=== PATIENT | male | born 1930 | race Caucasian/White ===

== ENCOUNTER 2019-07-23 10:12 | Inpatient (IN) | payer MEDICARE ==
[~2019-07-23] VITALS: Ht 172.7 cm; Wt 75.2 kg
[2019-07-23 10:49] LABS: BASO % 0 % (0-3); EOS # 0.2 x10^3/uL (0.0-0.7); EOS % 1 % (0-3); HEMATOCRIT 29.6 % (39.0-53.0); HEMOGLOBIN 9.7 g/dL (13.0-17.5); LYMPH # 1.1 x10^3/uL (1.0-4.8); LYMPH % 10 % (24-48); MEAN CORPUSCULAR HEMOGLOBIN 30 pg (25-35); MEAN CORPUSCULAR HGB CONC 33 g/dL (31-37); MEAN CORPUSCULAR VOLUME 92 fL (79-100); MONO # 0.9 x10^3/uL (0.0-1.1); MONO % 8 % (0-9); NEUT # 8.9 x10^3uL (1.8-7.7); NEUT % 81 % (31-73); PLATELET COUNT 125 x10^3/uL (140-400); RED BLOOD COUNT 3.22 x10^6/uL (4.30-5.70); RED CELL DISTRIBUTION WIDTH 14.9 % (11.5-14.5); WHITE BLOOD COUNT 11.1 x10^3/uL (4.0-11.0)
--- NOTE | 2019-07-23 10:58 | PHYS DOC ---
Past History Past Medical History: CAD, CHF, Diabetes, Renal Disease, Other Additional Past Medical Histor: enlarged prostate, ing hernia Past Surgical History: Pacemaker Additional Past Surgical Histo: cardiac valve replacement, cardiac stents Adult General Chief Complaint Chief Complaint: MECHANICAL FALL HPI HPI 89-year-old male presents via EMS for frequent falls at home and HER mental status. Patient has dementia at baseline. He has been acting more last couple days than usual. He has had at least 5 falls in the last 3 days. He lives at home with his daughter who is his machine molder squeeze and DPOA. She tells me that he will seemed fine and then just fall. He does not appear to be losing consciousness, but is also not tripping. He uses a walker at baseline. He has a chronic Stewart for enlarged prostate. Patient has not reported fever. He tells me he does not currently have any pain, but feels very dry in the mouth. His daughter is concerned that she cannot care for him at home in this condition. Review of Systems Review of Systems Constitutional: Falls. Denies fever or chills [] Eyes: Denies change in visual acuity, redness, or eye pain [] HENT: Dry mouth. Denies nasal congestion or sore throat [] Respiratory: Denies cough or shortness of breath [] Cardiovascular: No additional information not addressed in HPI [] GI: Denies abdominal pain, nausea, vomiting, bloody stools or diarrhea [] : chronic stewart [] Musculoskeletal: Denies back pain or joint pain [] Integument: Denies rash or skin lesions [] Neurologic: Denies headache, focal weakness or sensory changes [] Endocrine: Denies polyuria or polydipsia [] All other systems were reviewed and found to be within normal limits, except as documented in this note. Current Medications Current Medications Current Medications Medications (Trade) Dose Ordered Sig/Greg Start Time Stop Time Status Last Admin Dose Admin Sodium Chloride 1,000 ml @ 1,000 mls/hr 1X ONCE 07/23/19 11:00 07/23/19 11:59 Allergies Allergies Allergies Coded Allergies Type Severity Reaction Last Updated Verified Penicillins Allergy Unknown 07/23/19 Yes Physical Exam Physical Exam Constitutional: Well developed, well nourished, no acute distress, non-toxic appearance. Hard of hearing.[] HENT: Normocephalic, atraumatic, bilateral external ears normal, oropharynx very dry, no oral exudates, nose normal. [] Eyes: PERRLA, EOMI, conjunctiva normal, no discharge. [] Neck: Normal range of motion, no tenderness, supple, no stridor. [] Cardiovascular:Heart rate regular rhythm, no murmur [] Lungs & Thorax: Bilateral breath sounds clear to auscultation [] Abdomen: Bowel sounds normal, soft, no tenderness, no masses, no pulsatile masses. Stewart catheter, inguinal hernia [] Skin: Warm, dry, no erythema, no rash. [] Back: No tenderness, no CVA tenderness. [] Extremities: No tenderness, no cyanosis, no clubbing, ROM intact, no edema. [] Neurologic: Alert and oriented X 3, normal motor function, normal sensory function, no focal deficits noted. [] Psychologic: Memory impairment. Affect normal, judgement normal, mood normal. [] Current Patient Data Vital Signs Vital Signs Date Time Temp Pulse Resp B/P (MAP) Pulse Ox O2 Delivery O2 Flow Rate FiO2 07/23/19 10:22 98.2 78 18 92 Room Air EKG EKG [] Radiology/Procedures Radiology/Procedures [] Impressions: EXAM: CT HEAD WITHOUT CONTRAST. HISTORY: Fall, head injury. TECHNIQUE: Computed tomography of the head was performed without intravenous contrast. One or more of the following individualized dose reduction techniques were utilized for this examination: 1. Automated exposure control. 2. Adjustment of the mA and/or kV according to patient size. 3. Use of iterative reconstruction technique. COMPARISON: None. FINDINGS: There is no intracranial hemorrhage. 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 There are also suspected bilaterally in the arben. The hemispheric white matter indicates mild to moderate chronic microangiopathic change. Prominence of the lateral ventricles and hemispheric sulci indicates moderate atrophy. The visualized paranasal sinuses appear clear. The orbits are unremarkable. The temporal bones are unremarkable. The calvarium reveals no suspicious lesions. There are atherosclerotic calcifications of the internal carotid arteries. IMPRESSION: 1. No acute intracranial findings. 2. 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 Mild to moderate chronic microangiopathic white matter change elsewhere. 3. Moderate atrophy. Electronically signed by: Emilie Hess MD (07/23/2019 11:43 AM) [facility] DICTATED AND SIGNED BY: LOGAN HESS MD DATE: 07/23/19 1143 CC: HANDY OVERTON DO; SONALI LEI MD ~ Course & Med Decision Making Course & Med Decision Making Pertinent Labs and Imaging studies reviewed. (See chart for details) His head CT is negative for acute findings. The patient appears very clinically dry. We did give him 1 L normal saline. His creatinine is 2.2. His urinalysis shows urinary tract infection. He is allergic to penicillins, so we'll treat him with level oxacillin IV. I will have the patient into the hospital for further management of his dehydration and urinary tract infection. I spoke with Dr. Triplett and he has accepted the patient for admission. [] Dragon Disclaimer Dragon Disclaimer This electronic medical record was generated, in whole or in part, using a voice recognition dictation system. Departure Departure: Impression: Primary Impression: Dehydration Additional Impressions: Urinary tract infection Dementia Disposition: ADMITTED INPATIENT Admitting Physician: Guanakito Triplett Condition: STABLE Referrals: PCP,NO (PCP) Problem Qualifiers Additional Impressions: Urinary tract infection Urinary tract infection type: acute cystitis Hematuria presence: with hematuria Qualified Codes: N30.01 - Acute cystitis with hematuria Dementia Dementia type: unspecified type Dementia behavioral disturbance: without behavioral disturbance Qualified Codes: F03.90 - Unspecified dementia without behavioral disturbance HANDY OVERTON DO Jul 23, 2019 10:58
[2019-07-23] MEDS ORDERED: IV NORMAL SALINE 1,000ML 1,000 ML IV ONE (11:00)
[2019-07-23 11:15] LABS: ALBUMIN 3.1 g/dL (3.4-5.0); ALBUMIN/GLOBULIN RATIO 0.8 (1.0-1.7); CALCIUM 9.5 mg/dL (8.5-10.1); CREATININE 2.2 mg/dL (0.7-1.3); GFR 28.3; POTASSIUM 4.2 mmol/L (3.5-5.1); TOTAL BILIRUBIN 0.5 mg/dL (0.2-1.0); TOTAL PROTEIN 7.2 g/dL (6.4-8.2)
--- NOTE | 2019-07-23 11:46 | RAD ---
EXAM: CT HEAD WITHOUT CONTRAST. HISTORY: Fall, head injury. TECHNIQUE: Computed tomography of the head was performed without intravenous contrast. One or more of the following individualized dose reduction techniques were utilized for this examination: 1. Automated exposure control. 2. Adjustment of the mA and/or kV according to patient size. 3. Use of iterative reconstruction technique. COMPARISON: None. FINDINGS: There is no intracranial hemorrhage. 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 There are also suspected bilaterally in the arben. The hemispheric white matter indicates mild to moderate chronic microangiopathic change. Prominence of the lateral ventricles and hemispheric sulci indicates moderate atrophy. The visualized paranasal sinuses appear clear. The orbits are unremarkable. The temporal bones are unremarkable. The calvarium reveals no suspicious lesions. There are atherosclerotic calcifications of the internal carotid arteries. IMPRESSION: 1. No acute intracranial findings. 2. 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 Mild to moderate chronic microangiopathic white matter change elsewhere. 3. Moderate atrophy. Electronically signed by: Emilie Hess MD (07/23/2019 11:43 AM) [facility]
[2019-07-23 12:06] LABS: BILIRUBIN,URINE NEG (NEG); CLARITY,URINE CLOUDY; COLOR,URINE YELLOW; GLUCOSE,URINE NEG (NEG)
[2019-07-23 12:07] LABS: BACTERIA,URINE MANY /HPF (0-FEW); NITRITE,URINE NEG (NEG); UROBILINOGEN,URINE 0.2 mg/dL (0.2 mg/dL); WBC,URINE TNTC /HPF (0-4)
[2019-07-23 14:51] VITALS: BP 106/80
--- NOTE | 2019-07-23 15:21 | HP ---
ADMIT DATE: 07/23/2019 HISTORY OF PRESENT ILLNESS: The patient is an 89-year-old male patient who was brought to the Emergency Room with the complaint of recurrent mechanical falls. He lives at home with his daughter who is unable to take care of him. He has been acting more in last couple of days than usual. He has had at least 5 falls in the last 3 days. He lives at home with his daughter who is his auctioneer automobile and DPOA. She stated that he seems to be fine and then he just falls. He does not appear to be losing consciousness, but he is also not tripping. He uses a walker at baseline. He has chronic Mancilla catheter for enlarged prostate. She also reported that the patient has no fever. The patient himself denied any pain, but however, he feels dry in the mouth. His daughter is concerned that she cannot take care of him anymore at home in this condition and was admitted for further evaluation and treatment. The patient seemed to be very demented and determined to stay at home, he refused. He is on hospice. He is in a [place] hospice care and apparently they have been trying to persuade him to move to a fci facility and/or even assisted living, but he has steadfastly refusing that. In fact, he was not even allowing his daughter to get into his room when he was there. 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 PAST SURGICAL HISTORY: Significant for cardiac valve replacement, PCI with stent deployment and pacemaker placement. ALLERGIES: He is allergic to PENICILLIN. MEDICATIONS: He is on lorazepam Intensol as needed for anxiety, hydromorphone for pain. He is on Lasix 40 mg once a day, metoprolol succinate 100 mg once a day and dutasteride 1 capsule once a day. He is also on multivitamins and multiple supplement. FAMILY HISTORY: Probably noncontributory at this age. SOCIAL HISTORY: He is from his , who is . He lives with his daughter in [place] who herself is about 67-year-old and she has health problems that he cannot take care of him. He apparently does not smoke, drink alcohol or use recreational drugs. REVIEW OF SYSTEMS: As per history of present illness. PHYSICAL EXAMINATION: GENERAL: On arrival to the Emergency Room, the patient looked slightly pale. No jaundice, cyanosis or thyromegaly. No jugular venous distention. No limb edema. VITAL SIGNS: His heart rate was 78, blood pressure was 110/60, temperature was 98.2, respiratory rate was 18 and oxygen saturation was 93%. HEAD, EYES, EARS, NOSE AND THROAT: Showed normocephalic, atraumatic. NECK: Supple. HEART: Showed normal first and second heart sounds with no gallop or murmur. CHEST: Clear to auscultation. No crepitation or rhonchi. ABDOMEN: Distended, soft, nontender. No guarding or rigidity. No organomegaly. All hernial orifice intact. Bowel sounds normal. NEUROLOGIC: He is awake, alert, but very confused, agitated at times. All his cranial nerves are intact. EXTREMITIES: He moves all extremities without difficulty. Apparently, he walks with a walker at home, but has had multiple falls. LABORATORY DATA: This morning showed a white cell count of 11,100, hemoglobin 9.7, hematocrit 29, MCV 92, and platelet count of 125,000. His chemistry showed a serum sodium 138, potassium 4.2, chloride 100, bicarbonate 24, anion gap of 14, BUN 51, creatinine 2.2, estimated GFR was 28 mL per minute. His glucose 142, calcium was 9.5. Total bilirubin, AST, ALT, alkaline phosphatase were normal. Total protein was 7.2, albumin was 3.1 g/dL. His prothrombin time, INR and aPTT are all normal. His urine was yellow, cloudy with a pH of 7.5, specific gravity of 1.020. There was large amount of protein, negative for glucose, trace of ketones, large amount of blood, negative for nitrite. There was large amount of leukocyte esterase, 6-10 rbc's, too numerous to count wbc's and too many bacteria. His CT scan of the head showed there is no intracranial hemorrhage. 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 They are also suspected bilaterally in the bones. The hemispheric white matter indicates mild to moderate chronic microangiopathic changes, prominence of the lateral ventricles and hemispheric sulci indicates moderate atrophy. The visualized paranasal sinuses appears clear. The orbits are unremarkable. Temporal bones are unremarkable. The calvarium reveals no suspicious lesion. There are atherosclerotic calcifications of the internal carotid arteries. ASSESSMENT AND PLAN: The patient was admitted with recurrent falls, likely multifactorial. He has multiple cerebellar infarct as he also potentially has acute renal failure, although I do not have anything to compare with. He has also urinary tract infection. Other medical problems include congestive heart failure, combined systolic and diastolic. He is also known to have type 2 diabetes, coronary artery disease, chronic renal disease, benign prostatic hypertrophy. My plan is to gently rehydrate him. He has already an indwelling Mancilla catheter in place and given his impaired kidney function, he probably will require levofloxacin to be given every 48 hours and we will monitor his intake and output and lab work and adjust medication. JAMES ARNETT MD DR: ERICK/kiersten JOB#: [id number] / [id number]
--- NOTE | 2019-07-23 15:23 | NUR ---
NURSING NOTES: PATIENT ADMITTED TO ROOM 109 ON . PATIENT GIVEN INSTRUCTION OF UNIT ROUTINES AND VOICED UNDERSTANDING. ALL PATIENT BELONGINGS DOCUMENTED IN INTERVENTIONS. NO CONCERNS AT THIS TIME.
[2019-07-23] MEDS: IV 1/2 NORMAL SALINE 1,000 ML IV SCH (15:42)
[2019-07-23] MEDS ORDERED: PROC10TA2 PO (16:29)
[2019-07-23] MEDS ORDERED: GLUC-11 PO (16:30)
[2019-07-23] MEDS ORDERED: CHOL200027 PO (16:30)
[2019-07-23] MEDS ORDERED: HALO2TAB PO (16:30)
[2019-07-23] MEDS ORDERED: CHLO25TA4 PO (16:30)
[2019-07-23] MEDS ORDERED: POTA20TA82 PO (16:30)
[2019-07-23] MEDS ORDERED: B CO1TAB10 PO (16:30)
[2019-07-23] MEDS ORDERED: CINN500C2 PO (16:30)
[2019-07-23] MEDS ORDERED: VITA-8 PO (16:30)
[2019-07-23] MEDS ORDERED: CLOP75TA PO (16:30)
[2019-07-23] MEDS ORDERED: ACET325T9 PO (16:30)
[2019-07-23] MEDS ORDERED: DUTA0.5C PO (16:30)
[2019-07-23] MEDS ORDERED: METO-247 PO (16:30)
[2019-07-23] MEDS ORDERED: FERR325T14 PO (16:30)
[2019-07-23] MEDS ORDERED: DOCU100C28 PO (16:30)
[2019-07-23] MEDS ORDERED: SAW450CA7 PO (16:30)
[2019-07-23] MEDS ORDERED: FURO-69 PO ×2 (16:30)
[2019-07-23] MEDS ORDERED: HYOS0.1222 SL (16:30)
[2019-07-23] MEDS ORDERED: LUTE1CAP5 PO (16:30)
[2019-07-23] MEDS ORDERED: HYDR25TA PO (16:30)
[2019-07-23] MEDS ORDERED: ATORVASTATIN CA80 MG PO (16:30)
[2019-07-23] MEDS ORDERED: OMEG1CAP50 PO (16:30)
[2019-07-23] MEDS ORDERED: LORA-254 PO ×2 (16:30)
[2019-07-23] MEDS ORDERED: ASCO500C PO (16:30)
[2019-07-23 19:35] VITALS: BP 107/62
[2019-07-23] MEDS ORDERED: HALOPERIDOL 2 MG/1 ML SL (22:05)
[2019-07-23] MEDS ORDERED: HYOSCYAMINE 0.125 MG TAB.RAPDIS PO PRN (22:45)
[2019-07-23] MEDS ORDERED: DICYCLOMINE HCL 10 MG CAPSULE PO PRN (22:45)
[2019-07-23] MEDS ORDERED: DOCUSATE SODIUM 100 MG CAPSULE PO PRN (22:45)
[2019-07-23] MEDS ORDERED: FUROSEMIDE 20 MG TABLET PO PRN (22:45)
[2019-07-23] MEDS ORDERED: chlorproMAZINE HCL 25 MG TABLET PO PRN (22:45)
[2019-07-23] MEDS ORDERED: hydrOXYzine HCL 25 MG TABLET PO PRN (22:45)
[2019-07-23] MEDS ORDERED: ACETAMINOPHEN 650 MG SUPP.RECT. RC PRN (22:45)
[2019-07-23] MEDS ORDERED: PROCHLORPERAZINE 25 MG SUPP.RECT. PR PRN (22:45)
[2019-07-23] MEDS ORDERED: PROC25SU23 RC (22:53)
[2019-07-23] MEDS ORDERED: DICY10CA3 PO (22:53)
[2019-07-23] MEDS ORDERED: ACET650S11 RC (22:53)
[2019-07-23] MEDS ORDERED: LORA2ORA8 SL (22:53)
[2019-07-23] MEDS ORDERED: POTA10TA5 PO (22:53)
[2019-07-23] MEDS ORDERED: LORA0.5T96 PO (22:53)
[2019-07-23] MEDS: LORazepam 0.5 MG TABLET PO PRN (23:03)
--- NOTE | 2019-07-23 23:15 | NUR ---
PT A/O SELF ONLY, RESTLESS. REPEATEDLY CALLING OUT, REPORTS HE IS SEEING GHOSTS. ATTEMPTING TO GET UP WITHOUT ASSISTANCE. DIFFICULT TO REDIRECT. PRN ATIVAN GIVEN INDICATED. PT UP TO CHAIR WITH STAFF AT SIDE FOR SAFETY.
[2019-07-24] MEDS: HALOPERIDOL 10 MG/5 ML ORAL.CONC. SL PRN ×2 (00:30→09:04)
[2019-07-24 01:01] VITALS: BP 110/61
[2019-07-24] MEDS: IV 1/2 NORMAL SALINE 1,000 ML IV SCH ×3 (02:20→22:55)
[2019-07-24 05:37] VITALS: BP 99/52
[2019-07-24 06:24] LABS: HEMATOCRIT 28.1 % (39.0-53.0); HEMOGLOBIN 9.3 g/dL (13.0-17.5); RED BLOOD COUNT 3.03 x10^6/uL (4.30-5.70); RED CELL DISTRIBUTION WIDTH 15.4 % (11.5-14.5); WHITE BLOOD COUNT 10.5 x10^3/uL (4.0-11.0)
[2019-07-24 06:35] LABS: ALBUMIN 2.7 g/dL (3.4-5.0); ALBUMIN/GLOBULIN RATIO 0.7 (1.0-1.7); CALCIUM 8.7 mg/dL (8.5-10.1); GFR 31.6; POTASSIUM 3.7 mmol/L (3.5-5.1); TOTAL BILIRUBIN 0.6 mg/dL (0.2-1.0); TOTAL PROTEIN 6.4 g/dL (6.4-8.2)
[2019-07-24] MEDS: ASCORBIC ACID 500 MG TABLET PO SCH (08:51)
[2019-07-24] MEDS: DUTASTERIDE 0.5 MG CAPSULE PO SCH (08:51)
[2019-07-24] MEDS: POTASSIUM CHLORIDE 10 MEQ TABLET.ER. PO SCH (08:51)
[2019-07-24] MEDS: FERROUS SULFATE 325 MG TABLET. PO SCH (08:51)
[2019-07-24] MEDS: OMEGA-3 FATTY ACIDS/FISH OIL 1,000 MG CAPSULE. PO SCH (08:51)
[2019-07-24] MEDS: CLOPIDOGREL BISULFATE 75 MG TABLET PO SCH (08:51)
[2019-07-24] MEDS ORDERED: FUROSEMIDE 20 MG TABLET PO SCH (09:00)
[2019-07-24] MEDS: LORazepam 0.5 MG TABLET PO PRN (09:04)
--- NOTE | 2019-07-24 09:10 | NUR ---
NURSING NOTES: PATIENT SPITTING MEDICATIONS BACK AT NURSE THIS AM. PATIENT STATES HE TOOK THIS MEDICATION YESTERDAY AND DOES NOT NEED IT TODAY. PATIENT STATES HE SEES [facility] ON THE [place] AND STATES HE WANTS TO GO TO BED AND TAKE A NAP. WHEN PATIENT WAS TOLD HE WAS ALREADY IN BED AND THAT HE COULD JUST SIT BACK AND RELAX HE STATES HE IS NOT IN BED. PATIENT IS VERY AGITATED AND ANGRY WITH STAFF THIS AM. PRN HALDOL AND ATIVAN GIVEN.
[2019-07-24 11:06] VITALS: BP 103/54
[2019-07-24 15:51] VITALS: BP 114/58
[2019-07-24] MEDS ORDERED: traZODone 50 MG TABLET. PO PRN (19:00)
[2019-07-24 19:47] VITALS: BP 104/57
--- NOTE | 2019-07-24 20:16 | PDOC ---
Exam Note: Heber Note: Please also refer to the separate dictated note~for this date of service dictated separately.~Patient seen individually. Discussed the patient with Nursing staff reviewed the chart.~Reviewed interim history and current functioning. Reviewed vital signs,~Labs/ Radiology~and current medications noted below. Continue current treatment with the changes noted in the dictated addendum note Assessment: Vital Signs/I&O: Vital Signs Date Time Temp Pulse Resp B/P (MAP) Pulse Ox O2 Delivery O2 Flow Rate FiO2 07/24/19 19:47 98.1 83 18 104/57 (73) 91 Room Air I & O 07/23/19 07/23/19 07/24/19 15:00 23:00 07:00 Intake Total 1100 ml 360 ml 1126 ml Output Total 1300 ml Balance 1100 ml 360 ml -174 ml Labs: Laboratory Tests Test 07/23/19 21:11 07/24/19 05:57 07/24/19 07:21 07/24/19 11:36 Glucose (Fingerstick) 144 mg/dL (70-99) H 87 mg/dL (70-99) 101 mg/dL (70-99) H White Blood Count 10.5 x10^3/uL (4.0-11.0) Red Blood Count 3.03 x10^6/uL (4.30-5.70) L Hemoglobin 9.3 g/dL (13.0-17.5) L Hematocrit 28.1 % (39.0-53.0) L Mean Corpuscular Volume 93 fL (79-100) Mean Corpuscular Hemoglobin 31 pg (25-35) Mean Corpuscular Hemoglobin Concent 33 g/dL (31-37) Red Cell Distribution Width 15.4 % (11.5-14.5) H Platelet Count 129 x10^3/uL (140-400) L Sodium Level 137 mmol/L (136-145) Potassium Level 3.7 mmol/L (3.5-5.1) Chloride Level 102 mmol/L (98-107) Carbon Dioxide Level 25 mmol/L (21-32) Anion Gap 10 (6-14) Blood Urea Nitrogen 38 mg/dL (8-26) H Creatinine 2.0 mg/dL (0.7-1.3) H Estimated GFR (Cockcroft-Gault) 31.6 BUN/Creatinine Ratio 19 (6-20) Glucose Level 102 mg/dL (70-99) H Calcium Level 8.7 mg/dL (8.5-10.1) Total Bilirubin 0.6 mg/dL (0.2-1.0) Aspartate Amino Transferase (AST) 14 U/L (15-37) L Alanine Aminotransferase (ALT) 10 U/L (16-63) L Alkaline Phosphatase 67 U/L (46-116) Total Protein 6.4 g/dL (6.4-8.2) Albumin 2.7 g/dL (3.4-5.0) L Albumin/Globulin Ratio 0.7 (1.0-1.7) L Test 07/24/19 16:29 Glucose (Fingerstick) 94 mg/dL (70-99) Current Medications: Meds: Current Medications Medications (Trade) Dose Ordered Sig/Greg Route PRN Reason Start Time Stop Time Status Last Admin Dose Admin Lorazepam (Ativan) 0.5 mg PRN Q6HRS PRN PO ANXIETY / AGITATION 07/23/19 22:30 07/24/19 09:04 Haloperidol Lactate (HALDOL 10mg ORAL CONC) 1 mg PRN Q4HRS PRN SL N/V, DELIRIUM 07/23/19 22:45 07/24/19 09:04 Clopidogrel Bisulfate (Plavix) 75 mg DAILY PO 07/24/19 09:00 07/24/19 08:51 Dutasteride (Avodart) 0.5 mg DAILY PO 07/24/19 09:00 07/24/19 08:51 Ferrous Sulfate (Feosol) 325 mg DAILY PO 07/24/19 09:00 07/24/19 08:51 Furosemide (Lasix) 20 mg DAILY PO 07/24/19 09:00 07/24/19 15:06 DC 07/24/19 08:51 Fish Oil (Fish Oil) 1,000 mg DAILY PO 07/24/19 09:00 07/24/19 08:51 Ascorbic Acid (Vitamin C) 500 mg DAILY PO 07/24/19 09:00 07/24/19 08:51 Potassium Chloride (Klor-Con) 10 meq DAILYWBKFT PO 07/24/19 08:00 07/24/19 08:51 I have reviewed the current psychotropics carefully including drug interactions. Risk benefit ratio favors no change other than as noted in my dictated progress note. Diagnosis: Problems: (1) Dehydration (2) Urinary tract infection (3) Dementia (4) Anxiety disorder (5) Major depressive disorder, recurrent episode ALBERTO LAWSON MD Jul 24, 2019 20:16
[2019-07-24] MEDS: LACTOBACILLUS RHAMNOSUS GG 1 CAPSULE. PO SCH (21:23)
[2019-07-24] MEDS: MIRTAZAPINE 7.5 MG TABLET. PO SCH (21:23)
[2019-07-24] MEDS: ATORVASTATIN CALCIUM 20 MG TABLET PO SCH (21:24)
[2019-07-24 23:42] VITALS: BP 122/61
--- NOTE | 2019-07-25 01:04 | PN ---
DATE: 07/24/2019 SUBJECTIVE: The patient is an 89-year-old male patient who was admitted yesterday with recurrent episodes of fall at home and he has fallen about 5 times in the last 3 days prior to admission. He has chronic indwelling Mancilla catheter due to enlarged prostate. However, his daughter who herself is in her late 60s feels that she is unable to take care of him. However, the patient was vehemently averse to going to a fci. He is on hospice at [facility] and apparently they have tried to persuade him numerous times to go to a halfway facility without any success so far. Anyhow, he was evaluated yesterday, he was found to be dehydrated and therefore, we held his diuretics, started him on IV fluid and continued most of his other medications. On questioning today, he continued to be confused, apparently hallucinating. He was yelling, talking to people who were not there, removing all his clothes. PHYSICAL EXAMINATION: GENERAL: When I examined him today, he was resting slightly propped up in bed, in no apparent respiratory distress. He was slightly pale, but no jaundice, cyanosis or thyromegaly. No jugular venous distention. No limb edema. VITAL SIGNS: Her heart rate was 82, blood pressure was 103/54, temperature was 98.3, respiratory rate 20, and oxygen saturation was 93% on room air. HEAD, EYES, EARS, NOSE AND THROAT: Showed normocephalic, atraumatic. NECK: Supple. HEART: Showed normal first and second heart sounds. No gallop or murmur. CHEST: Clear to auscultation. No crepitation or rhonchi. ABDOMEN: Distended, soft, nontender. There was a large, easily reducible right indirect inguinal hernia. There is no tenderness. No guarding or rigidity. No organomegaly. All hernial orifice intact. Bowel sounds normal. NEUROLOGIC: He is very demented, confused, hallucinating, but without any obvious lateralizing sign. All his cranial nerves are intact. He moves extremities without difficulty. He is mostly bedbound. His intake over the last 24 hours was 2600, output was 1300. LABORATORY DATA: As of this morning, his white cell count was 10,500, hemoglobin 9.3, hematocrit 28, MCV 93, platelet count 229,000. His chemistry showed serum sodium of 137, potassium 3.7, chloride 102, bicarbonate 25, anion gap of 10, BUN 38, creatinine 2, estimated GFR was 31 mL per minute. His glucose 102, calcium was 8.7. Total bilirubin, AST, ALT, alkaline phosphatase were normal. Total protein was 6.74. Albumin was 2.7. His prothrombin time, INR and aPTT were normal. Urinalysis showed the urine was cloudy with a pH of 7.5, specific gravity 1.020, there was large amount of protein, negative for glucose, large amount of blood, large amount of leukocyte esterase, 6-10 rbc's, and too numerous to count wbc's and too many bacteria. ASSESSMENT: 1. In summary, this is an 89-year-old male patient with dementia and behavioral disturbances. Other medical problems include acute on chronic kidney injury, improving. 2. Benign prostatic hypertrophy with bladder outlet obstruction requiring indwelling Mancilla catheter, urinary tract infection for which we started him on IV levofloxacin. HE IS ALLERGIC TO PENICILLIN. Other medical problems include coronary artery disease, PCI with stent deployment, congestive heart failure, likely due to combined systolic and diastolic congestive heart failure, type 2 diabetes, and chronic kidney disease. PLAN: I held his diuretics for now, continue with IV fluid, continue with all his other medications including his dutasteride as well as all his psychotropic medication. We will consult Dr. Bazzi to assist with his management as he is extremely demented, very psychotic at times, hallucinating, yelling for no reason, talking to people who are not there. JAMES ARNETT MD DR: ERICK/kiersten JOB#: [id number] / [id number]
[2019-07-25] MEDS: HALOPERIDOL 10 MG/5 ML ORAL.CONC. SL PRN (01:18)
[2019-07-25 06:17] VITALS: BP 134/73
[2019-07-25 06:18] LABS: CALCIUM 8.9 mg/dL (8.5-10.1); CREATININE 1.6 mg/dL (0.7-1.3); GFR 40.9; POTASSIUM 3.5 mmol/L (3.5-5.1)
[2019-07-25] MEDS: POTASSIUM CHLORIDE 10 MEQ TABLET.ER. PO SCH (08:00)
[2019-07-25] MEDS: DUTASTERIDE 0.5 MG CAPSULE PO SCH (09:00)
[2019-07-25] MEDS: LACTOBACILLUS RHAMNOSUS GG 1 CAPSULE. PO SCH ×2 (09:00→21:00)
[2019-07-25] MEDS: OMEGA-3 FATTY ACIDS/FISH OIL 1,000 MG CAPSULE. PO SCH (09:00)
[2019-07-25] MEDS: FERROUS SULFATE 325 MG TABLET. PO SCH (09:00)
[2019-07-25] MEDS: CLOPIDOGREL BISULFATE 75 MG TABLET PO SCH (09:00)
[2019-07-25] MEDS: ASCORBIC ACID 500 MG TABLET PO SCH (09:00)
[2019-07-25] MEDS: IV 1/2 NORMAL SALINE 1,000 ML IV SCH ×2 (09:03→16:45)
[2019-07-25 10:37] VITALS: BP 132/66
--- NOTE | 2019-07-25 11:25 | NUR ---
NURSING NOTES: THIS NURSE SPOKE TO DAUGHTER, LORI, ABOUT CODE STATUS. DAUGHTER STATES PATIENT IS ON HOSPICE AND HAS A SIGNED DNR FORM AT HOME. DAUGHTER IS ALSO DPOA OF HEALTH AND STATES SHE WISHES TO KEEP PATIENT DNR STATUS.
--- NOTE | 2019-07-25 14:03 | NUR ---
NURSING NOTES: THIS NURSE SPOKE TO DAUGHTERLORI WHOM IS PATIENT'S DPOA. DAUGHTER VOICED THAT SHE DOES NOT WANT US TO PROVIDE FURTHER MEDICAL CARE. SHE WANTS US TO STOP ANTIBIOTICS AND OXYGEN USE. THIS NURSE EXPLAINED THE CONSEQUENCES OF STOPPING CURRENT TREATMENT REGIMEN. DAUGHTER VOICED UNDERSTANDING AND VOICE THAT THIS IS HER WISHES. SHE WANTS THE PATIENT TO GO BACK TO [facility] AND BE ON COMFORT CARE MEASURES ONLY FOR REST OF HOSPITAL STAY. CASE MANAGEMENT NOTIFIED OF SITUATION ALONG WITH [facility]. THIS NURSE WILL SPEAK TO DR. ARNETT OF DAUGHTERS WISHES.
--- NOTE | 2019-07-25 14:52 | NUR ---
NURSING NOTES: AFTER SPEAKING WITH CASE MANAGEMENT AND ASSESSING PATIENT, DR. ARNETT PLANS TO CONTINUE TREATMENT FOR TODAY AND TO PLAN FOR DISCHARGE TOMORROW WITH HOSPICE SERVICES.
[2019-07-25 19:38] VITALS: BP 127/68
--- NOTE | 2019-07-25 20:27 | PDOC ---
Exam Note: Heber Note: Please also refer to the separate dictated note~for this date of service dictated separately.~Patient seen individually. Discussed the patient with Nursing staff reviewed the chart.~Reviewed interim history and current functioning. Reviewed vital signs,~Labs/ Radiology~and current medications noted below. Continue current treatment with the changes noted in the dictated addendum note Assessment: Vital Signs/I&O: Vital Signs Date Time Temp Pulse Resp B/P (MAP) Pulse Ox O2 Delivery O2 Flow Rate FiO2 07/25/19 19:38 98.2 106 18 127/68 (87) 97 Room Air 07/25/19 10:37 2.0 I & O 07/24/19 07/24/19 07/25/19 15:00 23:00 07:00 Intake Total 240 ml 25 ml Output Total 800 ml 1700 ml Balance 240 ml -800 ml -1675 ml Labs: Laboratory Tests Test 07/25/19 05:39 07/25/19 07:55 Sodium Level 142 mmol/L (136-145) Potassium Level 3.5 mmol/L (3.5-5.1) Chloride Level 105 mmol/L (98-107) Carbon Dioxide Level 24 mmol/L (21-32) Anion Gap 13 (6-14) Blood Urea Nitrogen 25 mg/dL (8-26) Creatinine 1.6 mg/dL (0.7-1.3) H Estimated GFR (Cockcroft-Gault) 40.9 Glucose Level 100 mg/dL (70-99) H Calcium Level 8.9 mg/dL (8.5-10.1) Glucose (Fingerstick) 89 mg/dL (70-99) Current Medications: Meds: Current Medications Medications (Trade) Dose Ordered Sig/Greg Route PRN Reason Start Time Stop Time Status Last Admin Dose Admin Levofloxacin/ Dextrose 50 ml @ 50 mls/hr Q24H IV 07/25/19 09:00 07/25/19 08:56 Atorvastatin Calcium (Lipitor) 80 mg HS PO 07/24/19 21:00 07/24/19 21:24 Lactobacillus Rhamnosus (Culturelle) 1 cap BID PO 07/24/19 21:00 07/24/19 21:23 Mirtazapine (Remeron) 7.5 mg QHS PO 07/24/19 21:00 07/24/19 21:23 I have reviewed the current psychotropics carefully including drug interactions. Risk benefit ratio favors no change other than as noted in my dictated progress note. Diagnosis: Problems: (1) Dehydration (2) Urinary tract infection (3) Dementia (4) Anxiety disorder (5) Major depressive disorder, recurrent episode ALBERTO LAWSON MD Jul 25, 2019 20:27
--- NOTE | 2019-07-25 20:28 | PN ---
DATE: 07/25/2019 SUBJECTIVE: The patient continues to be restless, agitated, hollering, yelling. We did start him on IV fluid and his kidney function is improving. In fact, his creatinine came down from 2.2 to 1.6. His urine culture grew more than 100,000 colony forming units per mL of Streptococcus species. PHYSICAL EXAMINATION: GENERAL: When I examined him this afternoon, he was very confused, restless, agitated, slightly pale, but no jaundice, cyanosis or thyromegaly. No jugular venous distention. No limb edema. LABORATORY DATA: His white count was 10.5, hemoglobin 9.3, hematocrit 28, MCV 93, and platelet count of 129,000. His chemistry showed a serum sodium 142, potassium 3.5, chloride 105, bicarbonate 24, anion gap of 13, BUN 25, creatinine 1.6, estimated GFR was 40 mL per minute. His glucose was 100, calcium was 8.9. His urine culture showed growth of more than 100,000 colony forming units per mL of Streptococcus species. Unfortunately, HE IS ALLERGIC TO PENICILLIN. We will continue with IV fluid, continue with IV levofloxacin and all other medication tomorrow. The patient will be hopefully discharged on hospice to perhaps a shelter facility if he was accepted in one of them. JAMES ARNETT MD DR: ERICK/kiersten JOB#: [id number] / [id number]
[2019-07-25] MEDS: ATORVASTATIN CALCIUM 20 MG TABLET PO SCH (21:00)
[2019-07-25] MEDS: MIRTAZAPINE 7.5 MG TABLET. PO SCH (21:00)
[2019-07-25 23:00] VITALS: BP 131/70
--- NOTE | 2019-07-26 00:26 | CONS ---
DATE OF CONSULTATION: 07/24/2019 PSYCHIATRIC CONSULTATION This late entry 07/24/2019 covers elements not covered in my initial note. I met with the patient evening of 07/24/2019. Discussed with nursing staff, reviewed the chart. IDENTIFYING DATA: The patient is an 89-year-old male seen in bed [address], [facility], for a psychiatric consult requested by Dr. Triplett on account of the patient's active hallucinations within the context of his UTI. He has been grabbing at things, seeing bugs, slept poorly previous night. Per nursing report, the day before, he was much more oriented. Concern has been that despite treatment of his UTI, confusion seems to be worsening within the context of his baseline dementia. In addition, he seems to be psychotic with active hallucinations. CHIEF COMPLAINT: "I am okay." While I was visiting with the patient, he was looking out of the corner of his eyes, which were trailing all around the room as if he is following some visual cues. HISTORY OF PRESENT ILLNESS: The patient has a history of dementia, Alzheimer's vascular type. He has been residing at home with his daughter who is now unable to take care of him. He has been having recurrent falls. He appears somewhat depressed, paranoid. No active symptoms of bipolar disorder, suicidal or homicidal ideation. He has had sleep and appetite changes. PAST PSYCHIATRIC HISTORY: As above. MEDICAL HISTORY: Positive falls, repeated falls, coronary artery disease, congestive heart failure, type 2 diabetes mellitus, chronic renal disease, BPH, inguinal hernia. PAST SURGICAL HISTORY: Significant for cardiac valve replacement, PCI with stent deployment and pacemaker placement. ALLERGIES: PENICILLIN. CURRENT PSYCHOTROPICS: Ativan and Intensol p.r.n. FAMILY HISTORY: Noncontributory. SOCIAL HISTORY: The patient lives at home with his daughter who is in her 60s and is having trouble taking care of him. MENTAL STATUS EXAMINATION: The patient was seen individually evening of 07/24/2019 in his room. He is oriented to himself. Insight, judgment, recent memory is impaired. Language function intact. Attention span short. Mood and affect somewhat labile. 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 He felt the year was 2018, felt the month was January. 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 RECOMMENDATION: From a psychiatric standpoint, I would treat the UTI and see how his psychotic symptoms seem to resolve with resolution of the UTI. He does not have a history of alcohol abuse or withdrawal. We will start Remeron 7.5 mg p.o. at bedtime, trazodone 50 mg at bedtime p.r.n. insomnia and then see if his psychotic symptoms persist despite resolution of the UTI and then decide whether we need to use an atypical antipsychotic. Dr. Triplett, thank you for the opportunity to participate in the patient's care. We will follow with you. ALBERTO LAWSON MD DR: CHATO/nts JOB#: [id number] / [id number]
[2019-07-26] MEDS: IV 1/2 NORMAL SALINE 1,000 ML IV SCH (02:45)
[2019-07-26 06:08] LABS: CALCIUM 8.5 mg/dL (8.5-10.1); CREATININE 1.4 mg/dL (0.7-1.3); GFR 47.7
[2019-07-26 06:14] VITALS: BP 118/66
[2019-07-26] MEDS: POTASSIUM CHLORIDE 10 MEQ TABLET.ER. PO SCH (08:00)
[2019-07-26] MEDS: FERROUS SULFATE 325 MG TABLET. PO SCH (08:54)
[2019-07-26] MEDS: OMEGA-3 FATTY ACIDS/FISH OIL 1,000 MG CAPSULE. PO SCH (08:54)
[2019-07-26] MEDS: LACTOBACILLUS RHAMNOSUS GG 1 CAPSULE. PO SCH ×2 (08:54→21:00)
[2019-07-26] MEDS: ASCORBIC ACID 500 MG TABLET PO SCH (08:55)
[2019-07-26] MEDS: DUTASTERIDE 0.5 MG CAPSULE PO SCH (08:55)
[2019-07-26] MEDS: CLOPIDOGREL BISULFATE 75 MG TABLET PO SCH (08:55)
[2019-07-26 10:56] VITALS: BP 128/71
[2019-07-26 14:46] VITALS: BP 110/67
--- NOTE | 2019-07-26 15:20 | NUR ---
Patient resting in bed at this time, continue to reposition throughout day. Patient appears comfortable and will ask staff for drinks and when he is hungry. Patient able to tolerate 75% of an ensure and sips of water. Bed bath given today, skin dry and intact. Pt denies complaints of pain or discomfort. Verified with daughter about medications/antibiotics, states she does not want to continue further treatment.
[2019-07-26 19:55] VITALS: BP 107/67
--- NOTE | 2019-07-26 20:27 | PDOC ---
Exam Note: Heber Note: Please also refer to the separate dictated note~for this date of service dictated separately.~Patient seen individually. Discussed the patient with Nursing staff reviewed the chart.~Reviewed interim history and current functioning. Reviewed vital signs,~Labs/ Radiology~and current medications noted below. Continue current treatment with the changes noted in the dictated addendum note Assessment: Vital Signs/I&O: Vital Signs Date Time Temp Pulse Resp B/P (MAP) Pulse Ox O2 Delivery O2 Flow Rate FiO2 07/26/19 19:55 97.4 104 20 107/67 (80) 92 Room Air 07/25/19 10:37 2.0 I & O 07/25/19 07/25/19 07/26/19 14:59 22:59 06:59 Intake Total 0 ml Output Total 1300 ml 775 ml Balance -1300 ml -775 ml Labs: Laboratory Tests Test 07/26/19 05:42 07/26/19 07:54 Sodium Level 143 mmol/L (136-145) Potassium Level 4.0 mmol/L (3.5-5.1) Chloride Level 106 mmol/L (98-107) Carbon Dioxide Level 24 mmol/L (21-32) Anion Gap 13 (6-14) Blood Urea Nitrogen 19 mg/dL (8-26) Creatinine 1.4 mg/dL (0.7-1.3) H Estimated GFR (Cockcroft-Gault) 47.7 Glucose Level 92 mg/dL (70-99) Calcium Level 8.5 mg/dL (8.5-10.1) Glucose (Fingerstick) 77 mg/dL (70-99) Current Medications: I have reviewed the current psychotropics carefully including drug interactions. Risk benefit ratio favors no change other than as noted in my dictated progress note. Diagnosis: Problems: (1) Dehydration (2) Urinary tract infection (3) Dementia (4) Anxiety disorder (5) Major depressive disorder, recurrent episode ALBERTO LAWSON MD Jul 26, 2019 20:27
[2019-07-26] MEDS: MIRTAZAPINE 7.5 MG TABLET. PO SCH (21:00)
[2019-07-26] MEDS: ATORVASTATIN CALCIUM 20 MG TABLET PO SCH (21:00)
--- NOTE | 2019-07-26 21:34 | PN ---
DATE: 07/25/2019 PSYCHIATRIC PROGRESS NOTE. This late entry of 07/25/2019 covers the elements not covered in my initial note. SUBJECTIVE: I met with the patient in the evening. Overall, the patient continues to have some intermittent hallucinations and these are in association with his UTI and a history of dementia. He is somewhat tired. REVIEW OF SYSTEMS: No CV, , pulmonary, eye system symptoms on review. MENTAL STATUS EXAM: Oriented to himself. Insight, judgment, recent memory is impaired. Language function intact. Attention span short. Mood and affect somewhat withdrawn, labile at times. LABORATORY DATA: Reviewed. IMPRESSION: Unchanged from initial note. PLAN: No change from initial note. MAN Shi LAWSON MD DR: CHATO/kiersten JOB#: [id number] / [id number]
[2019-07-26 22:27] VITALS: BP 106/65
--- NOTE | 2019-07-26 23:22 | PN ---
DATE: 07/26/2019 SUBJECTIVE: The patient is resting, slightly propped up in bed, sleeping comfortably. He complained that he is tired. He is definitely less restless and agitated. He is not yelling or hollering like yesterday. PHYSICAL EXAMINATION: GENERAL: When I examined him this morning, he looked somewhat pale, but no jaundice, cyanosis or thyromegaly. No jugular venous distention. No limb edema. VITAL SIGNS: His heart rate was 75, blood pressure was 128/71, temperature was 97.6, respiratory rate was 16, and oxygen saturation was 94%. HEAD, EYES, EARS, NOSE AND THROAT: Showed normocephalic, atraumatic. NECK: Supple. HEART: Showed normal first and second heart sounds. No gallop or murmur. CHEST: Clear to auscultation. No crepitation or rhonchi. ABDOMEN: Distended, soft, no tenderness. No guarding or rigidity. No organomegaly. He has large indirect inguinal hernia that is reducible, extending to the right scrotal area. He has an indwelling Mancilla catheter. NEUROLOGIC: He is demented, but without any obvious lateralizing sign. His intake over the last 24 hours was 265, output was 2500. LABORATORY DATA: As of this morning, his serum sodium was 143, potassium 4, chloride 106, bicarbonate 24, anion gap of 13, BUN 19, creatinine 1.4, estimated GFR was 48 mL per minute. His glucose 92, calcium was 8.5. His white cell count was 10,000, hemoglobin 9.3, hematocrit 28, MCV 93, and platelet count of 129,000. ASSESSMENT: 1. Recurrent falls. 2. Acute on chronic kidney injury. 3. Benign prostatic hypertrophy with bladder outlet obstruction. 4. Urinary tract infection. 5. The patient has multiple other medical problems include: A. Coronary artery disease, status post PCI stent deployment. B. Congestive heart failure, likely due to combined systolic and diastolic congestive heart failure. C. Type 2 diabetes. D. Chronic kidney disease. PLAN: To continue with IV fluid, continue with levofloxacin. Continue with all his psychotropic medications, await placement in a detention facility to go on hospice care. JAMES ARNETT MD DR: ERICK/kiersten JOB#: [id number] / [id number]
[2019-07-27 04:43] VITALS: BP 139/76
[2019-07-27 07:41] LABS: CALCIUM 8.3 mg/dL (8.5-10.1); CREATININE 1.6 mg/dL (0.7-1.3); GFR 40.9
[2019-07-27 07:42] LABS: HEMATOCRIT 30.4 % (39.0-53.0); RED BLOOD COUNT 3.3 x10^6/uL (4.30-5.70); RED CELL DISTRIBUTION WIDTH 15.2 % (11.5-14.5); WHITE BLOOD COUNT 10.6 x10^3/uL (4.0-11.0)
[2019-07-27 08:15] LABS: POTASSIUM 4.1 mmol/L (3.5-5.1)
[2019-07-27] MEDS: LACTOBACILLUS RHAMNOSUS GG 1 CAPSULE. PO SCH ×2 (08:32→21:08)
[2019-07-27] MEDS: FERROUS SULFATE 325 MG TABLET. PO SCH (08:32)
[2019-07-27] MEDS: OMEGA-3 FATTY ACIDS/FISH OIL 1,000 MG CAPSULE. PO SCH (08:32)
[2019-07-27] MEDS: POTASSIUM CHLORIDE 10 MEQ TABLET.ER. PO SCH (08:32)
[2019-07-27] MEDS: DUTASTERIDE 0.5 MG CAPSULE PO SCH (08:32)
[2019-07-27] MEDS: ASCORBIC ACID 500 MG TABLET PO SCH (08:32)
[2019-07-27] MEDS: CLOPIDOGREL BISULFATE 75 MG TABLET PO SCH (08:32)
[2019-07-27 10:48] VITALS: BP 106/65
[2019-07-27] MEDS: CALCIUM CARBONATE 500 MG TAB.CHEW PO PRN (14:05)
[2019-07-27 15:41] VITALS: BP 100/55
[2019-07-27 19:25] VITALS: BP 107/57
--- NOTE | 2019-07-27 20:57 | PDOC ---
Exam Note: Heber Note: Please also refer to the separate dictated note~for this date of service dictated separately.~Patient seen individually. Discussed the patient with Nursing staff reviewed the chart.~Reviewed interim history and current functioning. Reviewed vital signs,~Labs/ Radiology~and current medications noted below. Continue current treatment with the changes noted in the dictated addendum note Assessment: Vital Signs/I&O: Vital Signs Date Time Temp Pulse Resp B/P (MAP) Pulse Ox O2 Delivery O2 Flow Rate FiO2 07/27/19 19:25 98.3 93 16 107/57 (74) 93 Room Air 07/25/19 10:37 2.0 I & O 07/26/19 07/26/19 07/27/19 15:00 23:00 07:00 Intake Total 300 ml 960 ml 300 ml Output Total 300 ml Balance 0 ml 960 ml 300 ml Labs: Laboratory Tests Test 07/26/19 21:14 07/27/19 06:40 07/27/19 08:06 07/27/19 11:56 Glucose (Fingerstick) 183 mg/dL (70-99) H 250 mg/dL (70-99) H 207 mg/dL (70-99) H White Blood Count 10.6 x10^3/uL (4.0-11.0) Red Blood Count 3.30 x10^6/uL (4.30-5.70) L Hemoglobin 10.0 g/dL (13.0-17.5) L Hematocrit 30.4 % (39.0-53.0) L Mean Corpuscular Volume 92 fL (79-100) Mean Corpuscular Hemoglobin 30 pg (25-35) Mean Corpuscular Hemoglobin Concent 33 g/dL (31-37) Red Cell Distribution Width 15.2 % (11.5-14.5) H Platelet Count 209 x10^3/uL (140-400) Sodium Level 140 mmol/L (136-145) Potassium Level 4.1 mmol/L (3.5-5.1) Chloride Level 104 mmol/L (98-107) Carbon Dioxide Level 25 mmol/L (21-32) Anion Gap 11 (6-14) Blood Urea Nitrogen 29 mg/dL (8-26) H Creatinine 1.6 mg/dL (0.7-1.3) H Estimated GFR (Cockcroft-Gault) 40.9 Glucose Level 270 mg/dL (70-99) H Calcium Level 8.3 mg/dL (8.5-10.1) L Test 07/27/19 16:23 Glucose (Fingerstick) 196 mg/dL (70-99) H Current Medications: Meds: Current Medications Medications (Trade) Dose Ordered Sig/Greg Route PRN Reason Start Time Stop Time Status Last Admin Dose Admin Calcium Carbonate/ Glycine (Tums) 500 mg PRN AFTMEALHC PRN PO INDIGESTION 07/27/19 13:15 07/27/19 14:05 I have reviewed the current psychotropics carefully including drug interactions. Risk benefit ratio favors no change other than as noted in my dictated progress note. Diagnosis: Problems: (1) Psychotic disorder (2) Major neurocognitive disorder (3) Dementia in Alzheimer's disease with delusions (4) Dementia in Alzheimer's disease with depression (5) Dementia, vascular, with delusions (6) Dementia, vascular, with depression (7) Anxiety disorder ALBERTO LAWSON MD Jul 27, 2019 20:57
[2019-07-27] MEDS: MIRTAZAPINE 7.5 MG TABLET. PO SCH (21:08)
[2019-07-27] MEDS: ATORVASTATIN CALCIUM 20 MG TABLET PO SCH (21:08)
[2019-07-27 23:08] VITALS: BP 111/63
--- NOTE | 2019-07-27 23:22 | PN ---
DATE: 07/26/2019 PSYCHIATRIC PROGRESS NOTE This late entry 07/26/2019, covers the elements not covered in my initial note. SUBJECTIVE: I met with the patient in the evening of 07/26/2019. Per nursing report, the patient has been more verbal and appropriate, less delirious, less hallucinations. He has been treated for his UTI and cognitively appears a little clearer. REVIEW OF SYSTEMS: Ambulation impaired. No CV, , pulmonary, eye system symptoms on review. MENTAL STATUS EXAM: Oriented to himself and situation. Speech is coherent, very verbal forthcoming as I met with him at some length. Abstraction fair, computation impaired, language function intact. Mood and affect remains intermittently withdrawn. LABORATORY DATA: Reviewed. IMPRESSION: Unchanged from initial note. PLAN: No change from initial note. Treat the UTI. Rest psychotropics unchanged. MAN Shi LAWSON MD DR: CHATO/kiersten JOB#: [id number] / [id number]
[2019-07-28 04:47] VITALS: BP 109/54
[2019-07-28] MEDS: levoFLOXacin 250 MG TABLET PO SCH (04:47)
[2019-07-28] MEDS: CLOPIDOGREL BISULFATE 75 MG TABLET PO SCH (08:49)
[2019-07-28] MEDS: OMEGA-3 FATTY ACIDS/FISH OIL 1,000 MG CAPSULE. PO SCH (08:50)
[2019-07-28] MEDS: POTASSIUM CHLORIDE 10 MEQ TABLET.ER. PO SCH (08:50)
[2019-07-28] MEDS: FERROUS SULFATE 325 MG TABLET. PO SCH (08:50)
[2019-07-28] MEDS: ASCORBIC ACID 500 MG TABLET PO SCH (08:50)
[2019-07-28] MEDS: LACTOBACILLUS RHAMNOSUS GG 1 CAPSULE. PO SCH ×2 (08:50→19:56)
[2019-07-28] MEDS: DUTASTERIDE 0.5 MG CAPSULE PO SCH (08:50)
[2019-07-28 11:00] VITALS: BP 107/61
--- NOTE | 2019-07-28 12:15 | PN ---
DATE: 07/27/2019 SUBJECTIVE: The patient is resting slightly propped up in bed, in no apparent distress. He is complaining of neck pain and also heartburn and said that he is uncomfortable the way he is sitting, but otherwise, he is much less agitated and restless than yesterday. He is not hollering or yelling. PHYSICAL EXAMINATION: GENERAL: When I examined him, he looked pale. Not jaundiced, cyanosed or thyromegaly. No jugular venous distention. No limb edema. VITAL SIGNS: His heart rate was 102, blood pressure is 106/65, temperature was 99.6, respiratory rate was 18 and oxygen saturation was 93% on room air. HEENT: Head is normocephalic, atraumatic. NECK: Supple. CARDIOVASCULAR SYSTEM: Showed normal first and second heart sounds. No gallop or murmur. CHEST: Clear to auscultation. No crepitation or rhonchi. ABDOMEN: Distended, soft, nontender, no guarding or rigidity. No organomegaly. All hernial orifices intact. Bowel sounds normal. NEUROLOGIC: He is demented, but without any obvious lateralizing sign. He moves all extremities without difficulty, but he is mostly bed bound, chair bound. He has an indwelling Mancilla catheter, has large indirect inguinal hernia that is reducible. His intake over the last 24 hours was incompletely recorded, output was 2075. LABORATORY DATA: His white cell count 15,600, hemoglobin 10, hematocrit 30, MCV 92 and platelet count 209,000. His chemistry showed that his serum sodium 140, potassium 4.1, chloride 104, bicarbonate 25, anion gap of 11, BUN 29, creatinine 1.6, estimated GFR was 41 mL per minute. Glucose 170 and calcium was 8.3. His urine culture has grown greater than 100,000 colony forming units per mL of Streptococcus species as well as Enterococcus faecalis. The bacteria is sensitive to all antibiotics including ciprofloxacin, levofloxacin, nitrofurantoin, penicillin, tetracycline, as well as vancomycin. ASSESSMENT: 1. Recurrent falls. 2. Acute on chronic kidney injury. 3. Benign prostatic hypertrophy, bladder outlet obstruction. 4. Urinary tract infection. 5. The patient has multiple other medical problems including: A. Coronary artery disease, status post PCI stent deployment. B. Congestive heart failure, likely combined systolic and diastolic congestive heart failure. C. Type 2 diabetes mellitus. D. Chronic kidney disease. PLAN: To continue with oral Levaquin and continue the other medications and I will add also Protonix and hopefully once he is accepted at [facility], can be discharged there on Monday. JAMES ARNETT MD DR: ERICK/kiersten JOB#: [id number] / [id number]
--- NOTE | 2019-07-28 12:36 | PN ---
DATE: 07/28/2019 SUBJECTIVE: The patient is resting, slightly propped up in bed, in no apparent respiratory distress. He is awake, alert, very confused, disoriented to time, place and person. He ate about 50% of his breakfast this morning. PHYSICAL EXAMINATION: GENERAL: When I examined him, he looked pale, but no jaundice, cyanosis or thyromegaly. No jugular venous distention. No limb edema. VITAL SIGNS: His heart rate was 106, blood pressure was 109/54, temperature was 98.9, respiratory rate was 18 and oxygen saturation was 93%. HEAD, EYES, EARS, NOSE AND THROAT: Showed normocephalic, atraumatic. NECK: Supple. HEART: Showed normal first and second heart sounds. No gallop or murmur. CHEST: Clear to auscultation. No crepitation or rhonchi. ABDOMEN: Distended, soft, nontender. NEUROLOGIC: He is demented without any obvious lateralizing sign. He has an indwelling catheter and direct inguinal hernia that is easily reducible. His intake over the last 24 hours was 1560, output was 300. LABORATORY DATA: As of yesterday, his white cell count was 10,600, hemoglobin 10, hematocrit 30, MCV 92, and platelet count 209,000. His chemistry showed a serum sodium 140, potassium 4.1, chloride 104, bicarbonate 25, anion gap of 11, BUN 29, creatinine 0.6, estimated GFR was 41 mL per minute, his glucose 217 and calcium was 8.3. ASSESSMENT: 1. Recurrent falls. 2. Acute on chronic kidney injury. 3. Benign prostatic hypertrophy with bladder outlet obstruction requiring indwelling Mancilla catheter. 4. Urinary tract infection with growth of Streptococcus species and Enterococcus faecalis. 5. The patient has multiple other medical problems including: A. Coronary artery disease, status post percutaneous coronary intervention with stent deployment. B. Congestive heart failure, likely combined systolic and diastolic congestive heart failure. C. Type 2 diabetes. D. Acute on chronic kidney disease. PLAN: To continue with oral levofloxacin. Continue with all his psychotropic medication and hopefully discharge him tomorrow to a assisted facility on hospice care. JAMES ARNETT MD DR: ERICK/kiersten JOB#: [id number] / [id number]
[2019-07-28] MEDS ORDERED: HYDROcodone/APAP 10/325 1 TAB TABLET PO PRN (14:00)
[2019-07-28 15:20] VITALS: BP 108/65
--- NOTE | 2019-07-28 16:30 | NUR ---
Pts daughter came out and told another RN, Mylene, that patient was adamant to keep his check book with him. Daughter brought check book in for patient to do some bills. An hour later this RN and IAN Chakraborty went in to get patient on commode. Check book is no where to be found. Looked under bed, under mattress in linens, in trash, in patients gown, in bedside table drawers. No check book found. This RN notified patients daughter, daughter states she will double check everything and look in the envelopes he gave her to make sure she doesn't have it. RN asked her to let us know if she finds it or not. This situation was communicated to nursing intelligence group supervisor. MIAH.
--- NOTE | 2019-07-28 16:39 | NUR ---
Daughter called back and states she does have patients check book.
[2019-07-28] MEDS: ACETAMINOPHEN 325 MG TABLET PO SCH (18:40)
[2019-07-28 19:13] VITALS: BP 106/64
[2019-07-28] MEDS: ATORVASTATIN CALCIUM 20 MG TABLET PO SCH (19:56)
[2019-07-28] MEDS: MIRTAZAPINE 7.5 MG TABLET. PO SCH (19:56)
--- NOTE | 2019-07-28 20:12 | NUR ---
Went over plan of care with pt, patient voiced understanding, needs redirection. Patient had a slight temp when this nurse came on shift. Patient was treated with tylenol. Patient is now afebrile. Will continue to monitor closely.
--- NOTE | 2019-07-28 20:31 | PDOC ---
Exam Note: Heber Note: Please also refer to the separate dictated note~for this date of service dictated separately.~Patient seen individually. Discussed the patient with Nursing staff reviewed the chart.~Reviewed interim history and current functioning. Reviewed vital signs,~Labs/ Radiology~and current medications noted below. Continue current treatment with the changes noted in the dictated addendum note Assessment: Vital Signs/I&O: Vital Signs Date Time Temp Pulse Resp B/P (MAP) Pulse Ox O2 Delivery O2 Flow Rate FiO2 07/28/19 20:04 98.8 07/28/19 19:37 Room Air 07/28/19 19:13 119 18 106/64 (78) 92 07/25/19 10:37 2.0 I & O 07/27/19 07/27/19 07/28/19 15:00 23:00 07:00 Intake Total 480 ml 360 ml 100 ml Output Total 550 ml 350 ml Balance 480 ml -190 ml -250 ml Labs: Laboratory Tests Test 07/27/19 21:11 07/28/19 07:45 07/28/19 12:16 Glucose (Fingerstick) 210 mg/dL (70-99) H 154 mg/dL (70-99) H 157 mg/dL (70-99) H Current Medications: Meds: Current Medications Medications (Trade) Dose Ordered Sig/Greg Route PRN Reason Start Time Stop Time Status Last Admin Dose Admin Levofloxacin (Levaquin) 250 mg DAILY06 PO 07/28/19 06:00 07/28/19 04:47 Acetaminophen/ Hydrocodone Bitart (Lortab 10/325) 1 tab PRN Q4HRS PRN PO PAIN 07/28/19 14:00 07/28/19 18:39 I have reviewed the current psychotropics carefully including drug interactions. Risk benefit ratio favors no change other than as noted in my dictated progress note. 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
--- NOTE | 2019-07-28 21:13 | PN ---
DATE: 07/27/2019 PSYCHIATRIC PROGRESS NOTE This late entry 07/27/2019 covers elements not covered in my initial note. SUBJECTIVE: I met with the patient evening of 07/27/2019. Per nursing report, the patient is less delirious, less agitated. No active hallucinations, seems more oriented. UTI seems to be responding to treatment and cognitively is doing better. REVIEW OF SYSTEMS: Ambulation impaired. No CV, , pulmonary, eye, ENT system symptoms on review. Reliability varies. MENTAL STATUS EXAM: Oriented to himself and situation. Speech has some latency, coherent. Abstraction fair, computation impaired, language function intact, attention span short. Mood and affect lability is improved. LABORATORY DATA: Reviewed. IMPRESSION: Unchanged from initial note. PLAN: No change from initial note. MAN Shi LAWSON MD DR: CHATO/kiersten JOB#: [id number] / [id number]
[2019-07-28 22:24] VITALS: BP 97/60
[2019-07-29 05:06] VITALS: BP 106/71
[2019-07-29] MEDS: levoFLOXacin 250 MG TABLET PO SCH (05:36)
[2019-07-29 06:40] LABS: CALCIUM 8.2 mg/dL (8.5-10.1); CREATININE 1.6 mg/dL (0.7-1.3); GFR 40.9
[2019-07-29] MEDS: LACTOBACILLUS RHAMNOSUS GG 1 CAPSULE. PO SCH ×2 (08:09→20:43)
[2019-07-29] MEDS: DUTASTERIDE 0.5 MG CAPSULE PO SCH (08:09)
[2019-07-29] MEDS: OMEGA-3 FATTY ACIDS/FISH OIL 1,000 MG CAPSULE. PO SCH (08:10)
[2019-07-29] MEDS: FERROUS SULFATE 325 MG TABLET. PO SCH (08:10)
[2019-07-29] MEDS: ASCORBIC ACID 500 MG TABLET PO SCH (08:10)
[2019-07-29] MEDS: POTASSIUM CHLORIDE 10 MEQ TABLET.ER. PO SCH (08:10)
[2019-07-29] MEDS: CLOPIDOGREL BISULFATE 75 MG TABLET PO SCH (08:10)
[2019-07-29 10:31] VITALS: BP 112/65
[2019-07-29] MEDS: CALCIUM CARBONATE 500 MG TAB.CHEW PO PRN (11:30)
[2019-07-29 14:39] VITALS: BP 111/67
--- NOTE | 2019-07-29 15:12 | PN ---
DATE: 07/28/2019 PSYCHIATRIC PROGRESS NOTE This late entry of 07/28/2019 covers elements not covered in my initial note. SUBJECTIVE: I met with the patient at length in the evening. Overall, the patient appears less confused, is very hyperverbal, animated, repeating his life story with me at great length as I met with him in the evening. REVIEW OF SYSTEMS: No overt psychotic symptoms noted. REVIEW OF SYSTEMS: No CV, , pulmonary, eye system symptoms on review. Does admit to being tired. MENTAL STATUS EXAM: Oriented to himself and situation. Speech is rapid, abstraction fair, computation impaired, language function intact, attention span short. Mood and affect is improved. LABORATORY DATA: Reviewed. IMPRESSION: Unchanged from initial note. PLAN: No change from initial note. MAN Shi LAWSON MD DR: CHATO/kiersten JOB#: [id number] / [id number]
[2019-07-29 19:16] VITALS: BP 108/64
--- NOTE | 2019-07-29 19:57 | PDOC ---
Exam Note: Heber Note: Please also refer to the separate dictated note~for this date of service dictated separately.~Patient seen individually. Discussed the patient with Nursing staff reviewed the chart.~Reviewed interim history and current functioning. Reviewed vital signs,~Labs/ Radiology~and current medications noted below. Continue current treatment with the changes noted in the dictated addendum note Assessment: Vital Signs/I&O: Vital Signs Date Time Temp Pulse Resp B/P (MAP) Pulse Ox O2 Delivery O2 Flow Rate FiO2 07/29/19 19:22 93 Nasal Cannula 2.0 07/29/19 19:16 100.6 108 20 108/64 (79) I & O 07/28/19 07/28/19 07/29/19 14:59 22:59 06:59 Intake Total 600 ml 460 ml 200 ml Output Total 350 ml Balance 600 ml 110 ml 200 ml Labs: Laboratory Tests Test 07/29/19 05:44 Sodium Level 138 mmol/L (136-145) Potassium Level 4.0 mmol/L (3.5-5.1) Chloride Level 102 mmol/L (98-107) Carbon Dioxide Level 28 mmol/L (21-32) Anion Gap 8 (6-14) Blood Urea Nitrogen 28 mg/dL (8-26) H Creatinine 1.6 mg/dL (0.7-1.3) H Estimated GFR (Cockcroft-Gault) 40.9 Glucose Level 152 mg/dL (70-99) H Calcium Level 8.2 mg/dL (8.5-10.1) L Current Medications: I have reviewed the current psychotropics carefully including drug interactions. Risk benefit ratio favors no change other than as noted in my dictated progress note. Diagnosis: Problems: (1) Psychotic disorder (2) Dementia, vascular, with depression (3) Dementia, vascular, with delusions (4) Dementia in Alzheimer's disease with depression (5) Dementia in Alzheimer's disease with delusions (6) Major neurocognitive disorder (7) Anxiety disorder (8) Major depressive disorder, recurrent episode LABERTO LAWSON MD Jul 29, 2019 19:57
[2019-07-29] MEDS: MIRTAZAPINE 7.5 MG TABLET. PO SCH (20:43)
[2019-07-29] MEDS: ACETAMINOPHEN 325 MG TABLET PO SCH (20:43)
[2019-07-29] MEDS: ATORVASTATIN CALCIUM 20 MG TABLET PO SCH (20:43)
[2019-07-29 23:28] VITALS: BP 102/58
--- NOTE | 2019-07-30 04:23 | PN ---
DATE: 07/29/2019 SUBJECTIVE: The patient is resting, slightly propped up in bed, in no apparent distress. On questioning him, he denied any complaint. The nursing staff did not voice any concerns that he has been very agitated, not yelling or hollering like before. PHYSICAL EXAMINATION: GENERAL: When I examined him, he was pale, but no jaundice, cyanosis or thyromegaly. No jugular venous distention. No limb edema. VITAL SIGNS: His heart rate was 100, blood pressure was 112/65, temperature was 100.7, respiratory rate 20, and oxygen saturation was 90%. HEAD, EYES, EARS, NOSE AND THROAT: Normocephalic, atraumatic. NECK: Supple. HEART: Showed normal first and second heart sounds. No gallop or murmur. CHEST: Clear to auscultation. No crepitation or rhonchi. ABDOMEN: Distended, soft, nontender. NEUROLOGIC: He is demented, but without any obvious lateralizing sign. He has an indwelling catheter and large direct inguinal hernia that is easily reducible. His intake over the last 24 hours was 940, output was 900. LABORATORY DATA: As of this morning showed a serum sodium 138, potassium 4, chloride 102, bicarbonate 28, anion gap of 8, BUN 28, creatinine 1.6, estimated GFR was 40 mL per minute. His glucose is 152. Calcium was 8.2. His urine culture has grown Streptococcus species, Enterococcus faecalis. ALLERGIES: UNFORTUNATELY, HE IS ALLERGIC TO PENICILLIN. He is spiking his temperature again and I might have to treat him with IV vancomycin. I will repeat his lab work. If he continues to spike temperatures and his white cell count has risen, we will probably switch him to ____. DICTATION ENDS HERE JAMES ARNETT MD DR: ERICK/kiersten JOB#: [id number] / [id number]
[2019-07-30] MEDS: levoFLOXacin 250 MG TABLET PO SCH (05:37)
[2019-07-30 05:39] VITALS: BP 104/61
[2019-07-30 06:06] LABS: CREATININE 1.6 mg/dL (0.7-1.3); GFR 40.9; POTASSIUM 4.4 mmol/L (3.5-5.1)
[2019-07-30 06:07] LABS: BASO % 1 % (0-3); EOS # 0.2 x10^3/uL (0.0-0.7); EOS % 2 % (0-3); HEMOGLOBIN 8.5 g/dL (13.0-17.5); LYMPH # 1.5 x10^3/uL (1.0-4.8); LYMPH % 18 % (24-48); MEAN CORPUSCULAR HEMOGLOBIN 30 pg (25-35); MEAN CORPUSCULAR HGB CONC 33 g/dL (31-37); MEAN CORPUSCULAR VOLUME 91 fL (79-100); MONO # 0.7 x10^3/uL (0.0-1.1); MONO % 8 % (0-9); NEUT # 6.2 x10^3uL (1.8-7.7); NEUT % 72 % (31-73); PLATELET COUNT 153 x10^3/uL (140-400); RED BLOOD COUNT 2.85 x10^6/uL (4.30-5.70); RED CELL DISTRIBUTION WIDTH 15.1 % (11.5-14.5); WHITE BLOOD COUNT 8.7 x10^3/uL (4.0-11.0)
[2019-07-30] MEDS: DUTASTERIDE 0.5 MG CAPSULE PO SCH (07:57)
[2019-07-30] MEDS: ASCORBIC ACID 500 MG TABLET PO SCH (07:57)
[2019-07-30] MEDS: FERROUS SULFATE 325 MG TABLET. PO SCH (07:57)
[2019-07-30] MEDS: CLOPIDOGREL BISULFATE 75 MG TABLET PO SCH (07:57)
[2019-07-30] MEDS: LACTOBACILLUS RHAMNOSUS GG 1 CAPSULE. PO SCH ×3 (07:57→20:30)
[2019-07-30] MEDS: POTASSIUM CHLORIDE 10 MEQ TABLET.ER. PO SCH (07:57)
[2019-07-30] MEDS: OMEGA-3 FATTY ACIDS/FISH OIL 1,000 MG CAPSULE. PO SCH (07:57)
--- NOTE | 2019-07-30 08:40 | NUR ---
NURSING NOTE PT WAS SLEEPING THIS AM IN HIS BED UPON ENTERING FOR ASSESSMENT AND MEDICATION ADMINISTRATION. PT AROUSED BY GENTLE TOUCH FOR BREAKFAST. PT WAS A&O TO NAME AND BIRTHDAY AND THAT HE WAS IN [place]. PT RESPONSE TO WHO IS THE PRESIDENT WAS "ASSHOLE". PT TOOK MEDS WHOLE 1 AT A TIME. PT LUNGS CLEAR. PT BEGAN EATING BREAKFAST AFTER ASSESSMENT. WILL CONTINUE TO MONITOR. IAN DALOTN.
[2019-07-30 10:35] VITALS: BP 113/60
--- NOTE | 2019-07-30 12:27 | DISCH ---
DISCHARGE ORDERS DISCHARGE DATE: Jul 30, 2019 FINAL DIAGNOSIS RECURRENT FALLS ADVANCED DEMENTIA A/C Kidney injury BPH with bladder outlet obstruction CONDITION AT DISCHARGE: Stable Code Status: DNR/DNI SNF STAY <30 DAYS: No HOSPICE: Yes HOSPICE EVALUATE & TREAT: Yes POST DISCHARGE ORDERS: ACTIVITY ORDERS: Activity as tolerated DIET AFTER DISCHARGE: Regular DISCHARGE MEDICATIONS: Home Meds Reported Medications Acetaminophen Supp (ACETAMINOPHEN SUPP) 650 Mg Supp.rect, 650 MG RC PRN Q4HRS PRN for PAIN / TEMP, SUPP.RECT 07/23/19 Dicyclomine Hcl (DICYCLOMINE HCL) 10 Mg Capsule, 10 MG PO PRN BID PRN for BLADDER SPASMS, CAP 07/23/19 Lorazepam (LORAZEPAM INTENSOL) 2 Mg/1 Ml Oral.conc, 0.5 ML SL PRN Q3HRS PRN for ANXIETY / AGITATION, LIQUID 07/23/19 Potassium Chloride (KLOR-CON 10) 10 Meq Tablet.er, 1 TAB PO DAILY for REPLACEMEN T for 30 Days, #30 TAB 0 Refills 07/23/19 Lorazepam (ATIVAN) 0.5 Mg Tablet, 0.5 MG PO PRN Q6HRS PRN for ANXIETY / AGITATION, TAB 07/23/19 Prochlorperazine Maleate (PROCHLORPERAZINE MALEATE) 25 Mg Supp.rect, 25 MG RC PRN Q6HRS PRN for NAUSEA/VOMITING, SUPP.RECT 07/23/19 [Haldol Po 2MG/1ML] No Conflict Check, 1 MG SL PRN Q4HRS PRN for N/V, DELIRIUM 07/23/19 Hydroxyzine Hcl (HYDROXYZINE HCL) 25 Mg Tablet, 1 TAB PO PRN TID PRN for ITCHING, % 07/23/19 Furosemide (LASIX) 20 Mg Tablet, 1 TAB PO DAILY for CHF, % 0 Refills 07/23/19 Chlorpromazine Hcl (CHLORPROMAZINE HCL) 25 Mg Tablet, 25 MG PO Q8HRS PRN for RESTLESSNESS NTE 3 DOSES IN 24 HOURS 07/23/19 Vitamin E Mixed (VITAMIN E) 400 Unit Capsule, 400 UNIT PO DAILY for SUPPLEMENT, % 07/23/19 Cholecalciferol (Vitamin D3) (VITAMIN D3) 2,000 Unit Tablet, 1 TAB PO DAILY for SUPPLEMENT, % 0 Refills 07/23/19 Ascorbic Acid (VITAMIN C) 500 Mg Capsule.er, 1 CAP PO DAILY for SUPPLEMENT, % 0 Refills 07/23/19 Lutein/Zeaxanthin (Ocuvite Lutein 25-5 mg Softgel) 1 Each Capsule, 1 CAP PO DAILY for SUPPLEMTN, % 0 Refills 07/23/19 B Complex With Vitamin C (SUPER B COMPLEX-VITAMIN C) 1 Each Tablet, 1 EACH PO DAILY for SUPPLEMENT, % 07/23/19 Saw [place] Fruit (SAW PALMETTO) 450 Mg Capsule, 450 MG PO DAILY for SUPPLEMENT, % 07/23/19 Dutasteride (AVODART) 0.5 Mg Capsule, 1 CAP PO DAILY for BPH, % 07/23/19 Glucosamine Hcl/Chondr Serrano A Na (CIDAFLEX TABLET) 1 Each Tablet, 1 TAB PO DAILY for SUPPLEMENT, % 0 Refills 07/23/19 [place]-3 Fatty Acids/Fish Oil (FISH OIL 1,000 MG SOFTGEL) 1 Each Capsule, 1 CAP PO DAILY for SUPPLEMENT, % 0 Refills 07/23/19 Ferrous Sulfate (FERROUS SULFATE) 325 Mg Tablet, 1 TAB PO DAILY for SUPPLEMENT, % 07/23/19 Cinnamon Bark (CINNAMON) 500 Mg Capsule, 500 MG PO DAILY for SUPPLEMENT. , % 07/23/19 Metoprolol Succinate (METOPROLOL SUCCINATE ( XL )) 100 Mg Tab.er.24h, 1 TAB PO DAILY for HIGH BLOOD PRESSURE, % 5 Refills 07/23/19 Furosemide (LASIX) 20 Mg Tablet, 1 TAB PO PRN Q24HRS PRN for EDEMA, % 0 Refills 07/23/19 Docusate Sodium (DOCUSATE SODIUM) 100 Mg Capsule, 2 CAP PO BID PRN for CONSTIPATION, % 0 Refills 07/23/19 Clopidogrel Bisulfate (CLOPIDOGREL) 75 Mg Tablet, 1 TAB PO DAILY for CIRCULATORY PROPHYLAXIS, % 07/23/19 Atorvastatin Calcium (ATORVASTATIN CALCIUM) 80 Mg Tablet, 1 TAB PO HS for HIGH CHOLESTEROL 07/23/19 Acetaminophen (TYLENOL) 325 Mg Tablet, 2 TAB PO PRN Q4HRS for PAIN/TEMP, % 07/23/19 Hyoscyamine Sulfate (HYOSCYAMINE SULFATE) 0.125 Mg Tab.rapdis, 1 TAB SL PRN Q2HR PRN for SECRETIONS, % 0 Refills NTE 12 DOSES IN 24 HOURS 07/23/19 Discontinued Reported Medications Lorazepam (ATIVAN) 1 Mg Tablet, 0.5 MG PO PRN Q6HRS for RESTLESSNESS, % 07/23/19 Potassium Chloride (POTASSIUM CHLORIDE) 20 Meq Tablet.er, 10 MEQ PO DAILY for SUPPLEMENT, % 07/23/19 Lorazepam (ATIVAN) 1 Mg Tablet, 1 TAB PO PRN Q2-4HRS PRN for ANXIETY MDD 2 Tablet(s), % 0 Refills 07/23/19 Haloperidol (HALOPERIDOL) 2 Mg Tablet, 1 TAB PO QHS for DELIRIUM, % 07/23/19 Prochlorperazine Maleate (PROCHLORPERAZINE MALEATE) 10 Mg Tablet, 1 TAB PO Q6HRS for NAUSEA, % 07/23/19 JAMES ARNETT MD Jul 30, 2019 12:27
[2019-07-30 14:37] VITALS: BP 99/64
[2019-07-30 19:26] VITALS: BP 104/60
--- NOTE | 2019-07-30 19:59 | PDOC ---
Exam Note: Heber Note: Please also refer to the separate dictated note~for this date of service dictated separately.~Patient seen individually. Discussed the patient with Nursing staff reviewed the chart.~Reviewed interim history and current functioning. Reviewed vital signs,~Labs/ Radiology~and current medications noted below. Continue current treatment with the changes noted in the dictated addendum note Assessment: Vital Signs/I&O: Vital Signs Date Time Temp Pulse Resp B/P (MAP) Pulse Ox O2 Delivery O2 Flow Rate FiO2 07/30/19 19:26 97.8 116 20 104/60 (75) 92 Room Air 07/30/19 10:35 1.0 I & O 07/29/19 07/29/19 07/30/19 15:00 23:00 07:00 Intake Total 360 ml 320 ml 200 ml Output Total 500 ml 1175 ml Balance 360 ml -180 ml -975 ml Labs: Laboratory Tests Test 07/30/19 05:34 07/30/19 06:01 Sodium Level 139 mmol/L (136-145) Potassium Level 4.4 mmol/L (3.5-5.1) Chloride Level 103 mmol/L (98-107) Carbon Dioxide Level 26 mmol/L (21-32) Anion Gap 10 (6-14) Blood Urea Nitrogen 26 mg/dL (8-26) Creatinine 1.6 mg/dL (0.7-1.3) H Estimated GFR (Cockcroft-Gault) 40.9 Glucose Level 150 mg/dL (70-99) H Calcium Level 8.0 mg/dL (8.5-10.1) L White Blood Count 8.7 x10^3/uL (4.0-11.0) Red Blood Count 2.85 x10^6/uL (4.30-5.70) L Hemoglobin 8.5 g/dL (13.0-17.5) L Hematocrit 26.0 % (39.0-53.0) L Mean Corpuscular Volume 91 fL (79-100) Mean Corpuscular Hemoglobin 30 pg (25-35) Mean Corpuscular Hemoglobin Concent 33 g/dL (31-37) Red Cell Distribution Width 15.1 % (11.5-14.5) H Platelet Count 153 x10^3/uL (140-400) Neutrophils (%) (Auto) 72 % (31-73) Lymphocytes (%) (Auto) 18 % (24-48) L Monocytes (%) (Auto) 8 % (0-9) Eosinophils (%) (Auto) 2 % (0-3) Basophils (%) (Auto) 1 % (0-3) Neutrophils # (Auto) 6.2 x10^3uL (1.8-7.7) Lymphocytes # (Auto) 1.5 x10^3/uL (1.0-4.8) Monocytes # (Auto) 0.7 x10^3/uL (0.0-1.1) Eosinophils # (Auto) 0.2 x10^3/uL (0.0-0.7) Basophils # (Auto) 0.0 x10^3/uL (0.0-0.2) Current Medications: I have reviewed the current psychotropics carefully including drug interactions. Risk benefit ratio favors no change other than as noted in my dictated progress note. Diagnosis: Problems: (1) Psychotic disorder (2) Dementia, vascular, with depression (3) Dementia, vascular, with delusions (4) Dementia in Alzheimer's disease with depression (5) Dementia in Alzheimer's disease with delusions (6) Major neurocognitive disorder (7) Recurrent falls (8) Urinary tract infection (9) Anxiety disorder (10) Major depressive disorder, recurrent episode ALBERTO LAWSON MD Jul 30, 2019 19:59
[2019-07-30] MEDS: MIRTAZAPINE 7.5 MG TABLET. PO SCH (20:27)
[2019-07-30] MEDS: ATORVASTATIN CALCIUM 20 MG TABLET PO SCH (20:28)
[2019-07-30 23:05] VITALS: BP 113/65
--- NOTE | 2019-07-30 23:08 | PN ---
DATE: 07/30/2019 PSYCHIATRIC PROGRESS NOTE This late entry 07/29/2019 covers elements not covered in my initial note. SUBJECTIVE: I met with the patient in the evening. Per nursing report, the patient has been doing reasonably well. No overt hallucinations noted. He does have short term memory deficits, some of its exacerbated by him being hard of hearing. I met with him at some length in his room. He was watching the history channel on the TV and seemed aware of what was happening. 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 REVIEW OF SYSTEMS: Positive for tiredness. No CV, , pulmonary, eye system symptoms on review. MENTAL STATUS EXAM: Oriented to himself and situation. Speech is coherent, rapid at times. Abstraction fair, computation impaired. Language function intact. Attention span short. Mood and affect is improved. LABORATORY DATA: Reviewed. IMPRESSION: Unchanged from initial note. PLAN: No change from initial note. MAN Shi LAWSON MD DR: CHATO/kiersten JOB#: [id number] / [id number]
[2019-07-31] MEDS: levoFLOXacin 250 MG TABLET PO SCH (05:50)
[2019-07-31 06:00] VITALS: BP 107/64
[2019-07-31] MEDS: ASCORBIC ACID 500 MG TABLET PO SCH (08:32)
[2019-07-31] MEDS: LACTOBACILLUS RHAMNOSUS GG 1 CAPSULE. PO SCH (08:32)
[2019-07-31] MEDS: OMEGA-3 FATTY ACIDS/FISH OIL 1,000 MG CAPSULE. PO SCH (08:34)
[2019-07-31] MEDS: FERROUS SULFATE 325 MG TABLET. PO SCH (08:34)
[2019-07-31] MEDS: POTASSIUM CHLORIDE 10 MEQ TABLET.ER. PO SCH (08:34)
[2019-07-31] MEDS: CLOPIDOGREL BISULFATE 75 MG TABLET PO SCH (08:34)
[2019-07-31] MEDS: DUTASTERIDE 0.5 MG CAPSULE PO SCH (08:34)
[2019-07-31 10:27] VITALS: BP 104/62
--- NOTE | 2019-07-31 14:13 | NUR ---
NURSING NOTE DISCHARGE PT DISCHARGED TO [facility] VIA WHEELCHAIR ACCOMPANIED BY TRANSPORT. REPORT CALLED TO [facility]. COPY OF CHART SENT WITH TRANSPORT. NO COMPLICATIONS. IAN DALTON.
--- NOTE | 2019-07-31 16:18 | PN ---
DATE: 07/30/2019 PSYCHIATRIC PROGRESS NOTE This late entry 07/30 covers elements not covered in my initial note. SUBJECTIVE: I met with the patient in evening of 07/30 and discussed with nursing staff. Overall, the patient is doing better. He is quite hard of hearing and this makes him more confused, but he does have short-term memory deficits. He has had no further hallucinations. He is quite verbal again as I met with him. REVIEW OF SYSTEMS: No CV, , pulmonary, eye system symptoms on review. MENTAL STATUS EXAM: Oriented to himself and situation. 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 Abstraction fair, computation impaired, language function intact. Short-term memory is impaired. No suicidal or homicidal ideation. LABORATORY DATA: Reviewed. IMPRESSION: Unchanged from initial note. PLAN: No change from initial note. MAN Shi LAWSON MD DR: CHATO/kiersten JOB#: [id number] / [id number]
== END 2019-07-31 14:17 | DRG 682 ==
LOC: ER 10:12 → 1 SOUTH 12:40
PROVIDERS: ADMIT Internal Medicine; ATTEND Internal Medicine
DX: N17.0 Acute kidney failure with tubular necrosis (principal); G92 Toxic encephalopathy; N39.0 Urinary tract infection, site not specified; I50.42 Chronic combined systolic (congestive) and diastolic (congestive) heart failure; F01.51 Vascular dementia, unspecified severity, with behavioral disturbance; F02.81 Dementia in other diseases classified elsewhere, unspecified severity, with behavioral disturbance; F33.9 Major depressive disorder, recurrent, unspecified; N13.8 Other obstructive and reflux uropathy; N18.9 Chronic kidney disease, unspecified; E11.22 Type 2 diabetes mellitus with diabetic chronic kidney disease; E86.0 Dehydration; F41.9 Anxiety disorder, unspecified; G30.9 Alzheimer's disease, unspecified; I25.10 Atherosclerotic heart disease of native coronary artery without angina pectoris; N40.1 Benign prostatic hyperplasia with lower urinary tract symptoms; Z88.0 Allergy status to penicillin; Z95.0 Presence of cardiac pacemaker; Z95.2 Presence of prosthetic heart valve; Z95.5 Presence of coronary angioplasty implant and graft
CPT/HCPCS: 36415; 70450; 80048; 80053; 81001; 82947; 85025; 85027; 85610; 85730; 87086; 87186; 96361; 96365; J1956; J7030; 99285-25